=== PATIENT | female | born 1980 | race Caucasian/White ===

== ENCOUNTER 2017-07-25 17:24 | Emergency (ER) | payer MEDICAID ==
[~2017-07-25] VITALS: Ht 165.1 cm; Wt 95.3 kg
[2017-07-25 18:37] VITALS: BP 124/86
== END 2017-07-25 20:17 | disposition home or self-care (01) ==
LOC: ER 17:24
DX: J40 Bronchitis, not specified as acute or chronic (principal); R09.82 Postnasal drip
CPT/HCPCS: 71046